=== PATIENT | female | born 2000 | race Caucasian/White ===

== ENCOUNTER 2020-11-14 13:11 | Emergency (ER) | payer OTHER ==
[2020-11-14 13:46] LABS: HEMOGLOBIN 12.9 gm/dl (12.3-15.3); RED BLOOD COUNT 4.68 M/UL (4.00-5.10); WHITE BLOOD COUNT 7.8 K/UL (4.5-11.0)
[2020-11-14 14:19] LABS: BUN/CREATININE RATIO 14 (0-10)
== END 2020-11-14 17:21 | disposition home or self-care (01) ==
LOC: ER1 13:11
PROVIDERS: Family Medicine
DX: R10.31 Right lower quadrant pain (principal); F17.290 Nicotine dependence, other tobacco product, uncomplicated
CPT/HCPCS: 80053; 81001; 83690; 84703; 85025; 99284; Q9967